=== PATIENT | male | born 1950 | race Caucasian/White ===

== ENCOUNTER → 2017-04-18 | Outpatient (CLI) | payer OTHER ==
[~2017-04-18] MED LIST: ACET-1256 PO; CIPR-255 PO; CLR10 PO; DOCU-94 PO; HYDR-3714 PO; OPTIRAY 320 IV PRN; PHEN-775 PO; RANITIDINE PO; TAMS0.4C38 PO; ZNTT/150 PO
--- NOTE | 2017-04-18 12:01 | DIAGNOSTIC IMAGING REPORT ---
ABD/PELVIS COMBO HISTORY: 67 years-old Male C67.9 Cancer of bladder COMPARISON: Renal ultrasound 04/05/2017 TECHNIQUE: Multiple axial CT images of the abdomen and pelvis were obtained both with and without the use of 93 mL Optiray 320. 3-D coronal and sagittal MIPS were obtained from Date facet and submitted for review. A dose lowering technique was used consistent with the principals of SHEILA. FINDINGS: Linear pleural-based opacity of the basal right lower lobe suggests atelectasis. There is a 3 mm noncalcified pulmonary nodule in the lateral basal segment left lower lobe. There is no pneumoperitoneum identified. Inferior cardiac chambers are within normal limits with the exception of three-vessel distribution of coronary arterial disease. Note is made of symmetric bilateral gynecomastia. The liver, spleen, pancreas and adrenal glands are within normal limits. Nonspecific perinephric stranding is present bilaterally without nephrolithiasis or hydronephrosis. Renal sinus cyst on the left is seen, 2.1 x 1.4 cm. Renal collecting systems appear normal bilaterally without focal filling defects identified. There is mild tortuosity of the proximal right ureter. Fungating enhancing mural mass of the left lateral urinary bladder anterior to the left ureterovesicular junction is seen, 3.2 x 3.6 x 4.1 cm. No invasion outside of the urinary bladder is identified. The prostate is mildly enlarged measuring up to 4.6 cm transversely. Fat filled left inguinal hernia is noted with postsurgical changes seen within the region of the right inguinal tissues. Focus of air within a nondependent urinary bladder lumen is noted. There is moderate atherosclerotic plaquing of the abdominal aorta. There is mild ectasia of the infrarenal abdominal aorta without aneurysm, 2.5 x 2.2 cm. There is no pathologic-appearing adenopathy of the abdomen or pelvis. There is no bowel structure and. Scattered noninflamed colonic diverticuli are noted. The appendix appears normal. The bones appear intact. IMPRESSION: 1. Fungating enhancing mural mass of the lateral left urinary bladder, anterior to the left ureterovesicular junction measuring 3.2 x 3.6 x 4.1 cm is consistent with urothelial neoplasm. No evidence of obstructive uropathy or invasion outside of the urinary bladder. 2. Focus of air within the nondependent urinary bladder lumen suggest sequela of recent instrumentation versus gas forming organism. 3. No evidence of pathologic adenopathy. 4. Prostamegaly. The above report was generated using voice recognition software. It may contain grammatical, syntax or spelling errors. Electronically signed by: Ethan Russ M.D. 04/18/2017 11:59 AM Dictated Date/Time: 04/18/2017 11:48 AM
== END | disposition home or self-care (01) ==
LOC: C.CTS 10:55
PROVIDERS: ATTEND Urology
DX: C67.9 Malignant neoplasm of bladder, unspecified (principal); E78.00 Pure hypercholesterolemia, unspecified; I10 Essential (primary) hypertension; Z82.49 Family history of ischemic heart disease and other diseases of the circulatory system; Z83.3 Family history of diabetes mellitus; Z84.1 Family history of disorders of kidney and ureter; Z80.42 Family history of malignant neoplasm of prostate; Z80.0 Family history of malignant neoplasm of digestive organs; Z80.6 Family history of leukemia; N40.0 Benign prostatic hyperplasia without lower urinary tract symptoms; N28.89 Other specified disorders of kidney and ureter

== ENCOUNTER 2017-04-30 10:16 | Day surgery (SDC) | payer OTHER ==
--- NOTE | 2017-04-18 10:06 | PAT Medication Instructions ---
Service Date Apr 18, 2017. Current Home Medication List Loratadine (Claritin), 10 MG PO QAM Ranitidine (Zantac), 150 MG PO QAM Tamsulosin Hcl (Flomax), 0.4 MG PO QAM Medication Instructions For Your Scheduled Surgery - Hold the following medications the morning of surgery: Loratadine (Claritin), 10 MG PO QAM Ranitidine (Zantac), 150 MG PO QAM Tamsulosin Hcl (Flomax), 0.4 MG PO QAM If you have any questions please call us at [phone] or [phone] or [phone]
[2017-04-18 10:34] LABS: BASO % 0.4 %; BASO ABS # 0.03 K/uL (0-0.2); COMPLETE YES; EOS % 0.5 %; HEMATOCRIT 49.9 % (42-52); IG% 0.1 %; LYMPH % 20.2 %; LYMPH ABS # 1.65 K/uL (1.2-3.4); MEAN CELL VOLUME 92.2 fL (80-100); MEAN CORPUSCULAR HEMOGLOBIN 32.9 pg (25-34); MEAN CORPUSCULAR HGB CONC 35.7 g/dl (32-36); MONO % 10.4 %; NEUT % 68.4 %; PLATELET COUNT 224 K/uL (130-400); RED BLOOD COUNT 5.41 M/uL (4.7-6.1); WHITE BLOOD COUNT 8.17 K/uL (4.8-10.8)
--- NOTE | 2017-04-18 11:12 | DIAGNOSTIC IMAGING REPORT ---
CHEST PREADMISSION(PA/LAT) CLINICAL HISTORY: PAT preoperative evaluation COMPARISON STUDY: No previous studies for comparison. FINDINGS: The bones soft tissues and hemidiaphragms are normal. The cardiomediastinal silhouette is normal. The lungs are clear. The pulmonary vasculature is normal. IMPRESSION: Negative chest. The above report was generated using voice recognition software. It may contain grammatical, syntax or spelling errors. Electronically signed by: Calin Deleon M.D. 04/18/2017 11:11 AM Dictated Date/Time: 04/18/2017 11:11 AM
[2017-04-18 12:21] LABS: BUN/CREATININE RATIO 16.9 (10-20); CREATININE 1.1 mg/dl (0.60-1.40); POTASSIUM 4.4 mmol/L (3.5-5.1)
[~2017-04-30] VITALS: Ht 180.3 cm; Wt 100.1 kg
[~2017-04-30 10:16] MED LIST changes: -ACET-1256 PO; -CIPR-255 PO; +CIPROFLOXACIN / D5W 400 MG IV SCH; -DOCU-94 PO; -HYDR-3714 PO; +LACTATED RINGER'S 1000ML 1,000 ML IV SCH; +MITOMYCIN FOR INJ 40 MG in SYRINGE 40 ML IR SCH; -OPTIRAY 320 IV PRN; -PHEN-775 PO; -RANITIDINE PO
[2017-04-30] MEDS ORDERED: EpHEDrine SULFATE INJ 50 MG/ML AMP IV PRN (11:15)
[2017-04-30] MEDS ORDERED: ONDANSETRON INJ 2 MG/ML 2 ML VIAL IV PRN (11:15)
[2017-04-30] MEDS ORDERED: ATROPINE SULFATE 0.1 MG/ML 5ML SYR IV PRN (11:15)
[2017-04-30] MEDS ORDERED: HYDROmorphone INJ 1 MG/ML SYR IV PRN (11:15)
[2017-04-30] MEDS ORDERED: ACET-1256 PO (11:26)
[2017-04-30 11:29] VITALS: BP 154/86; PULSE 61; TEMP 36.6; O2SAT 98
[2017-04-30 11:43] VITALS: BP 154/86; TEMP 36.6; O2SAT 98; Ht 180.3 cm; Wt 100.1 kg
--- NOTE | 2017-04-30 11:52 | History & Physical Bridge Note ---
H&P Re-Evaluation Bridge Note: I have examined the patient, reviewed the History & Physical and in the interval since the performance of the History & Physical I have noted the following changes of clinical significance: No changes noted
[2017-04-30] MEDS ORDERED: FENTANYL CITRATE INJ 50 MCG/1 ML 2 ML VIAL ONE (12:22)
[2017-04-30] MEDS ORDERED: MIDAZOLAM HCL 1 MG/ML 2ML VIAL ONE (12:22)
[2017-04-30] MEDS ORDERED: ONDANSETRON INJ 2 MG/ML 2 ML VIAL ONE (12:34)
[2017-04-30] MEDS ORDERED: LIDOCAINE HCL 2% 2 ML VIAL (20MG/ML) ONE (12:34)
[2017-04-30] MEDS ORDERED: PROPOFOL IV EMULSION 10 MG/ML 20 ML VIAL IV ONE (12:34)
[2017-04-30] MEDS ORDERED: DEXAMETHASONE SOD INJ 4 MG/ML VIAL ONE (12:34)
[2017-04-30] MEDS ORDERED: CONRAY 30% 150ML BOTTLE ONE (13:03)
[2017-04-30] MEDS ORDERED: BELLADONNA/OPIUM SUPP 60 MG SUPP PR ONE (13:20)
[2017-04-30] MEDS ORDERED: KETOROLAC TROMETHAMINE 30 MG/ML VIAL ONE (13:25)
[2017-04-30] MEDS ORDERED: EpHEDrine SULFATE INJ 50 MG/ML AMP ONE (13:28)
[2017-04-30] MEDS ORDERED: ROCURONIUM BROMIDE 10 MG/ML 5 ML VIAL ONE (13:49)
[2017-04-30] MEDS ORDERED: GLYCOPYRROLATE INJ 0.2 MG/ML VIAL ONE (13:49)
[2017-04-30] MEDS ORDERED: NEOSTIGMINE METHYLSULFATE 5 MG/5 ML SYR ONE (13:49)
[2017-04-30] MEDS: FENTANYL CITRATE INJ 50 MCG/1 ML 2 ML VIAL IV PRN ×2 (14:35→14:43)
[2017-04-30] MEDS ORDERED: DOCU-94 PO (14:36)
[2017-04-30] MEDS ORDERED: HYDR-3714 PO (14:36)
[2017-04-30] MEDS ORDERED: CIPR-255 PO (14:36)
[2017-04-30] MEDS ORDERED: PHEN-775 PO (14:36)
--- NOTE | 2017-04-30 14:39 | Discharge Instructions ---
Discharge Instructions Date of Service Apr 30, 2017. Admission Reason for Admission: Bladder Cancer, Bladder Stone Discharge Discharge Diagnosis / Problem: Bladder cancer s/p TURBT, Mitomycin C Discharge Goals Goal(s): Improve disease control, Diagnostic testing, Therapeutic intervention Activity Recommendations Activity Limitations: as noted below Lifting Limitations: no more than 25 pounds, gradually increase as tolerated ( x 1 week) Exercise/Sports Limitations: rest today, gradually increase as tolerated (x 1 week) May Resume Sexual Activity: after two weeks Shower/Bathe: no limitations Driving or Machine Use: resume 3 days after discharge Paz to gravity, leg bag as instruction . Instructions / Follow-Up Instructions / Follow-Up Trial of void / paz removal moved to SundayMay 04, 10:00 AM in [place] office (!!!! - moved from [place] office) Will keep pathology discussion / follow-up appointment May 18, 10:40 in [place] office Discharge Diet Recommended Diet: Regular Diet (good fluid intake) Procedures Procedures Performed: Transurethral Resection of Bladder Tumor, Instillation of Mitomycin Pending Studies Studies pending at discharge: yes List of pending studies: Pathology report Medical Emergencies . Who to Call and When: Medical Emergencies: If at any time you feel your situation is an emergency, please call 911 immediately. . Non-Emergent Contact Non-Emergency issues call your: Urologist Call Non-Emergent contact if: you have a fever, temperature is above 101, your pain is not controlled, your pain is worsening, your pain is unusual for you, your pain is concerning you, wound has increased drainage, wound has increased redness, you have any medication questions . . "Provider Documentation" section prepared by Aki West. . VTE Core Measure Inpt VTE Proph given/why not?: SCD's [place] Drug Monitoring Program Search Results: patient reviewed within database, no issues identified
--- NOTE | 2017-04-30 14:44 | [facility] Operative Report ---
Operative Report Operative Date Apr 30, 2017. Pre-Operative Diagnosis 4 cm Bladder Tumor Post-Operative Diagnosis Same as preoperative Procedure(s) Performed Transurethral Resection of Bladder Tumor, Instillation of Mitomycin C Surgeon Dr. Aki West [employer] Surgeon(s) None per surgeon Estimated Blood Loss 80 ml Findings Large left bladder tumor resected with no residual lesions noted, clear of UO Specimens A.) Bladder Tumor B.) Deep Bladder Tumor C.) Bladder Tumor Base Drains 24 fr 15 cc H2O paz Anesthesia [facility] Complication(s) None Disposition Recovery Room / PACU Indications 67-year-old male found to have a large left-sided bladder tumor on office cystoscopy and previous imaging. He was also found to have a mobile mass within the bladder felt to represent a large calcification having fallen off the tumor. CT scan imaging of the abdomen and pelvis demonstrates no hydronephrosis or distant spread of his disease. He is here today for initial resection and instillation of mitomycin-C for diagnostic and therapeutic value. Please see H&P for further details. Intravenous ciprofloxacin used for antibiotic coverage and DVT prophylaxis performed with SCDs. Description of Procedure Patient was properly identified and brought to the operative suite after identification of appropriate consent the chart. Intravenous antibiotics were provided for coverage and SCDs used for DVT prophylaxis. General anesthesia with laryngeal mask was induced and patient was prepped and draped in a dorsal lithotomy position. Full timeout procedure was followed. 26 [place]ar[place]uan resectoscope was introduced in the bladder under direct visualization using a visual obturator without difficulty. Patient was noted to have a moderately enlarged and friable prostate gland with a slightly elevated bladder neck. Within the bladder grade 1-2 trabeculation was present. Right-sided ureteral orifice was easily visualized and thankfully the left-sided ureteral orifice was noted to be distinct and removed from the large left-sided bladder tumor encompassing most of the left lateral wall. No other areas of tumor were appreciated. Using a bipolar loop the tumor was resected down toward the base of the tumor. Hemostasis was obtained as necessary using a button coagulation as the need arose. The first 2/3-3/4 of the tumor were sent as left-sided bladder tumor. As the base of the tumor was reached the specimen was sent labeled separately as deep bladder tumor. Resection was continued until the tumor was flush with the bladder wall. After an obturator reflex temporary paralysis was obtained. Ureteral orifice was noted to be free of injury after completion of the case on the left-hand side. After all visible tumor had been resected, cold cup forceps were used to take a couple of samples from the base of the tumor. This was labeled as bladder tumor base sent for separate pathologic analysis. After this was complete excellent hemostasis was appreciated. No evidence of residual tumor mass within the bladder was noted. No significant bladder perforation was appreciated save for a small area of thinning on the left-hand side. Due to this planned Paz catheter drainage is extended to 5 days. 24 [place]araguan Paz catheter was placed with 15 mL of sterile water in the balloon. After the bladder was drained and 40 mg of mitomycin-C in 40 mL of water were instilled into the bladder and catheter was clamped for 2 hours. Anesthesia was reversed and patient was transferred to the recovery room in stable condition. Will drain catheter prior to discharge home. Patient provided with prescriptions for antispasmodics, antibiotics and analgesics for discharge home. Postoperative trial of void and outpatient appointments are confirmed. Care is discussed with the patient's family who are present here today. She instructed to contact our service should he note any fevers, chills, nausea, vomiting or other difficulties in the postoperative period. I attest to the content of the Intraoperative Record and any orders documented therein. Any exceptions are noted below.
[2017-04-30] MEDS ORDERED: PHENAZOPYRIDINE HCL 200 MG TAB PO PRN (14:45)
[2017-04-30] MEDS ORDERED: OXYCODONE/ACETAMINOPHEN 5-325 TAB PO PRN ×2 (14:45)
--- NOTE | 2017-04-30 14:48 | Anesthesiology Progress Note ---
Anesthesia Post Op Note Date & Time Apr 30, 2017 at 14:47 Vital Signs Pain Intensity: 3 Vital Signs Past 12 Hours Date Time Temp Pulse Resp B/P (MAP) Pulse Ox O2 Delivery O2 Flow Rate FiO2 04/30/17 14:40 69 13 146/90 100 Mask 10 04/30/17 14:30 81 18 146/107 100 Mask 10 04/30/17 14:24 36.1 89 16 153/90 98 Mask 10 04/30/17 11:43 36.6 20 154/86 (108) 98 Room Air 04/30/17 11:29 36.6 61 20 154/86 (108) 98 Room Air Notes Mental Status: alert / awake / arousable, participated in evaluation Pt Amnestic to Procedure: Yes Nausea / Vomiting: adequately controlled Pain: adequately controlled Airway Patency, RR, SpO2: stable & adequate BP & HR: stable & adequate Hydration State: stable & adequate Anesthetic Complications: no major complications apparent
[2017-04-30 15:08] VITALS: BP 143/76; PULSE 70; TEMP 36.3; O2SAT 94
[2017-04-30 15:40] VITALS: BP 156/87; PULSE 66; O2SAT 96
[2017-04-30 16:15] VITALS: BP 174/79; PULSE 67; TEMP 36.4; O2SAT 95
[2017-04-30 17:10] VITALS: BP 151/80; PULSE 66; TEMP 36.7; O2SAT 97
== END 2017-04-30 17:39 | disposition home or self-care (01) ==
LOC: C.ACU 10:16
PROVIDERS: ATTEND Urology
DX: C67.9 Malignant neoplasm of bladder, unspecified (principal); E78.00 Pure hypercholesterolemia, unspecified; I10 Essential (primary) hypertension; Z82.49 Family history of ischemic heart disease and other diseases of the circulatory system; Z83.3 Family history of diabetes mellitus; Z84.1 Family history of disorders of kidney and ureter; Z80.42 Family history of malignant neoplasm of prostate; Z80.0 Family history of malignant neoplasm of digestive organs; Z80.6 Family history of leukemia

== ENCOUNTER → 2018-04-30 | Outpatient (CLI) | payer OTHER ==
[~2018-04-30] MED LIST changes: +ACET-1256 PO; +CIPR-255 PO; -CIPROFLOXACIN / D5W 400 MG IV SCH; -LACTATED RINGER'S 1000ML 1,000 ML IV SCH; -MITOMYCIN FOR INJ 40 MG in SYRINGE 40 ML IR SCH; +RANI150T85 PO; -ZNTT/150 PO
[2018-04-30 14:32] LABS: BLOOD UREA NITROGEN 17 mg/dl (7-18); CREATININE 1.04 mg/dl (0.60-1.40)
== END | disposition home or self-care (01) ==
LOC: C.LAB1850 11:36
PROVIDERS: ATTEND Urology
DX: R31.9 Hematuria, unspecified (principal)

== ENCOUNTER → 2018-05-08 | Outpatient (CLI) | payer OTHER ==
[~2018-05-08] MED LIST changes: +OPTIRAY 320 IV PRN
--- NOTE | 2018-05-08 11:11 | DIAGNOSTIC IMAGING REPORT ---
CT UROGRAM CLINICAL HISTORY: Hematuria. History of bladder cancer. COMPARISON STUDY: CT urogram dated 04/18/2017. TECHNIQUE: Before and following the IV administration of 120 cc of Optiray 320, CT urogram of the abdomen and pelvis is performed from the lung bases to the proximal femora. Images are reviewed in the axial, sagittal, and coronal planes. IV contrast was administered without complication. A dose lowering technique was utilized adhering to the principles of ALARA. CT DOSE: 2025.34 mGycm FINDINGS: Lung bases: The heart is normal in size and without pericardial effusion. The coronary arteries are densely calcified. Scarring/atelectasis is present both lung bases. No airspace consolidation or pleural effusion is identified. There is a tiny hiatal hernia. Liver: The contrast-enhanced liver is normal in size, contour, and attenuation. There is no intrahepatic biliary ductal dilatation. The hepatic veins and portal veins are patent. Gallbladder: Unremarkable. Spleen: Normal in size and attenuation. Pancreas: Unremarkable. Adrenal glands: Unremarkable. Kidneys and ureters: The contrast enhanced kidneys demonstrate mild cortical atrophy and are without hydronephrosis. There are no renal calculi identified on the unenhanced images. The kidneys enhance and excrete symmetrically. There is no enhancing renal cortical mass lesion identified. There are bilateral parapelvic cysts. There is no evidence of urothelial lesion within the renal pelvis bilaterally or along the course of either ureter. Abdominal vasculature: There is moderate to advanced atherosclerotic calcification as well as mild ectasia of the abdominal aorta. Bowel: A small duodenal diverticulum is incidentally noted. No bowel obstruction is identified. Mild to moderate colonic fecal retention is observed. The appendix is well-visualized and normal. Peritoneum: There is no intraperitoneal free air or abdominal ascites. There is a small fat-containing umbilical hernia. Lymphadenopathy: None. Pelvic viscera: There is median lobe hypertrophy of the prostate gland. Contour deformity/postoperative change is noted involving the left posterior wall of the bladder. The bladder is otherwise normal as visualized. Bilateral fat-containing inguinal hernias are observed. Findings suggest previous herniorrhaphy on the right. Skeletal structures: The skeletal structures are osteopenic. [id number] lumbosacral spondylosis is noted. Degenerative change is also seen in the sacroiliac joints. No lytic or blastic lesions are seen. IMPRESSION: 1. The kidneys demonstrate mild cortical atrophy and are without hydronephrosis. No renal calculi are identified. 2. There is no enhancing renal cortical mass, and no evidence of urothelial lesion involving the renal pelvis bilaterally or along the course of ureters. 3. There is median lobe hypertrophy of the prostate gland. 4. The bladder is normal as visualized. The mass lesion seen on 04/18/2017 is no longer apparent. 5. There is no evidence of metastatic disease in the abdomen or pelvis. 6. Additional findings as above. Electronically signed by: Eddie David M.D. 05/08/2018 11:10 AM Dictated Date/Time: 05/08/2018 11:02 AM
== END | disposition home or self-care (01) ==
LOC: C.CTS 10:29
PROVIDERS: ATTEND Urology
DX: R31.9 Hematuria, unspecified (principal); N40.0 Benign prostatic hyperplasia without lower urinary tract symptoms